=== PATIENT | female | born 1945 | race Caucasian/White ===

== ENCOUNTER → 2017-08-06 | Outpatient (CLI) | payer MEDICARE ==
[~2017-08-06] MED LIST: ALPRazolam 1MG TABLET ONE
== END | disposition home or self-care (01) ==
LOC: RAD 08:11
PROVIDERS: ATTEND Physician Assistant
DX: M47.22 Other spondylosis with radiculopathy, cervical region (principal); M47.816 Spondylosis without myelopathy or radiculopathy, lumbar region; M48.02 Spinal stenosis, cervical region; M51.37 Other intervertebral disc degeneration, lumbosacral region
CPT/HCPCS: 72141; 72148

== ENCOUNTER 2020-09-22 10:22 | Emergency (ER) | payer MEDICARE ==
[~2020-09-22] VITALS: Ht 160 cm; Wt 58.2 kg
--- NOTE | 2020-09-22 10:58 | NUR ---
PT BROUGHT BACK FROM TRIAGE WITH CHIEF COMPLAINT OF ABD PAIN, SWELLING AND LEFT LEG PAIN AND SWELLING.
[2020-09-22] MEDS ORDERED: SODIUM CHLORIDE FLUSH 10ML SYR IVF ONE (11:00)
[2020-09-22 11:04] VITALS: BP 210/95
[2020-09-22] MEDS ORDERED: LISI-170 PO (11:04)
[2020-09-22] MEDS ORDERED: VITA1TAB3 PO (11:04)
[2020-09-22] MEDS ORDERED: CARB1TAB47 PO (11:04)
--- NOTE | 2020-09-22 11:09 | NUR ---
IV ESTABLISHED FOR CT. LABS SENT. PT HAS CO STOMACH PAIN, LEFT LEG SWELLING. DENIES CHEST PAIN
[2020-09-22 11:16] LABS: BASOPHILS % (AUTO) 1 % (0-1); EOSINOPHILS % (AUTO) 2 % (1-7); LYMPHOCYTES % (AUTO) 27 % (22-44); MEAN PLATELET VOLUME 6.3 fL (7.4-10.4); MONOCYTES % (AUTO) 9 % (2-9); NEUTROPHILS % (AUTO) 61 % (42-75); PLATELET COUNT 301 x10^3/uL (130-400); RED BLOOD COUNT 4.37 x10^6/uL (3.82-5.3); RED CELL DISTRIBUTION WIDTH 14.1 % (9.6-15.2)
[2020-09-22 11:21] LABS: MD NO
[2020-09-22 11:27] LABS: ALBUMIN 4.1 g/dL (3.4-5.0); ANION GAP 3 mmol/L (5-15); CALCIUM 9.4 mg/dL (8.5-10.1); CHLORIDE 107 mmol/L (98-107); CREATININE 1.17 mg/dL (0.55-1.02)
--- NOTE | 2020-09-22 11:55 | NUR ---
ASSISTED PT TO BEDPAN TO VOID
--- NOTE | 2020-09-22 12:12 | NUR ---
PT TO CT
[2020-09-22] MEDS ORDERED: OMNIPAQUE 350 MG/ML, 100ML BOTTLE ONE (12:32)
--- NOTE | 2020-09-22 12:45 | NUR ---
ASSISTED PT TO BED MULLER. ALL IMAGING COMPLETE. VSS
--- NOTE | 2020-09-22 13:02 | NUR ---
Patient/Caregiver given discharge instructions and they have confirmed that they understand the instructions. Patient wheeled to dc area w family
== END 2020-09-22 13:07 | disposition home or self-care (01) ==
LOC: ED 11:22
DX: R10.32 Left lower quadrant pain (principal); R60.0 Localized edema
CPT/HCPCS: 36415; 74177; 80048; 82040; 85025; 93971; 99285; Q9967